=== PATIENT | male | born 1960 | race Caucasian/White ===

== ENCOUNTER → 2021-01-20 | Outpatient (CLI) | payer BC ==
[2021-01-20 11:20] LABS: Basophils % (A) 0 %; Eosinophils # (A) 0.4 k/uL (0-0.7); Eosinophils % (A) 5 %; HCT 37.3 % (39.0-53.0); HGB 12.8 gm/dL (13.0-17.5); Lymphocytes # (A) 1.6 k/uL (1.0-4.8); Lymphocytes % (A) 21 %; MCH 30.7 pg (25.0-35.0); MCHC 34.4 g/dL (31.0-37.0); MCV 89.5 fL (80.0-100.0); Mean Platelet Volume 8.3; Monocytes # (A) 0.7 k/uL (0-1.0); Monocytes % (A) 9 %; Neutrophils # (A) 4.7 k/uL (1.3-7.7); Neutrophils % (A) 63 %; Platelet Count 193 k/uL (150-450); RBC 4.17 m/uL (4.30-5.90); RDW 13.1 % (11.5-15.5); WBC 7.5 k/uL (3.8-10.6)
[2021-01-20 11:26] LABS: Appearance,Urine Clear (Clear); Bilirubin,Urine Negative (Negative); Blood,Urine Negative (Negative); Color,Urine Yellow; Glucose,Urine (UA) Negative (Negative); Ketones,Urine Negative (Negative); Leukocyte Esterase,Urine Negative (Negative); Nitrite,Urine Negative (Negative); PH, Urine 5.5 (5.0-8.0); Protein,Urine Negative (Negative); Specific Gravity,Urine 1.024 (1.001-1.035); Urobilinogen,Urine <2.0 mg/dL (<2.0)
[2021-01-20 11:52] LABS: ALT 31 U/L (4-49); AST 27 U/L (17-59); African American GFR (CKD) >90 (>60 ml/min/1.73 sqM); Albumin 4.2 g/dL (3.5-5.0); Alkaline Phosphatase 55 U/L (38-126); Anion Gap 9 mmol/L; Blood Urea Nitrogen 26 mg/dL (9-20); Carbon Dioxide 28 mmol/L (22-30); Chloride 103 mmol/L (98-107); Glucose 118 mg/dL (74-99); Non-African American GFR(CKD) >90 (>60 ml/min/1.73 sqM); Potassium 4.4 mmol/L (3.5-5.1); Sodium 140 mmol/L (137-145); Total Bilirubin 0.3 mg/dL (0.2-1.3); Total Protein 7.3 g/dL (6.3-8.2)
--- NOTE | 2021-01-20 12:17 | XR ---
EXAMINATION TYPE: XR chest 2V DATE OF EXAM: 01/20/2021 COMPARISON: NONE HISTORY: Presurgical testing. TECHNIQUE: Frontal and lateral views of the chest are obtained. FINDINGS: There is no focal air space opacity, pleural effusion, or pneumothorax seen. The cardiac silhouette size is within normal limits with some atherosclerotic change in the aortic knob. Multilev el lateral spurring in the mid to lower thoracic spine. IMPRESSION: No acute cardiopulmonary process.
== END | disposition home or self-care (01) ==
LOC: LABPAT 10:45
PROVIDERS: ATTEND Urology
DX: Z01.818 Encounter for other preprocedural examination (principal); D41.01 Neoplasm of uncertain behavior of right kidney; N39.0 Urinary tract infection, site not specified
CPT/HCPCS: 36415; 71046; 80053; 81003; 85025; 87086

== ENCOUNTER 2021-01-26 11:33 | Inpatient (IN) | payer BC ==
[2021-01-22 09:57] VITALS: BMI 47.0
--- NOTE | 2021-01-25 11:30 | P.GSHP ---
History of Present Illness H&P Date: 01/25/21 60 yo male had right flank kong. His primary care ordered a ct scan that identified a large right renal mass. He is now asx and his urne has been and is claer. He has no history of trauma or uti. the ct scan with contrast from [place] shows a large anterior mid to lower pole right renal mass c/w a renal cell carcinoma. He comes for a right radical nephrectomy. Alternatives have been discussed. - Constitutional Constitutional: Denies chills, Denies fever - EENT Eyes: denies blurred vision, denies pain Ears, nose, mouth and throat: Denies headache, Denies sore throat - Cardiovascular Cardiovascular: Denies chest pain, Denies shortness of breath - Respiratory Respiratory: Denies cough, Denies 7 - Gastrointestinal Gastrointestinal: Denies abdominal pain, Denies diarrhea, Denies nausea, Denies vomiting - Genitourinary (Female) Genitourinary: Denies dysuria, Denies hematuria - Genitourinary (Male) Genitourinary: Denies dysuria, Denies hematuria - Musculoskeletal Musculoskeletal: Denies myalgias - Integumentary Integumentary: Denies pruritus, Denies rash - Neurological Neurological: Denies numbness, Denies weakness - Psychiatric Psychiatric: Denies anxiety, Denies depression - Endocrine Endocrine: Denies fatigue, Denies weight change Past Medical History Past Medical History: Hyperlipidemia, Hypertension, Myocardial Infarction ([place]) Additional Past Medical History / Comment(s): During colonoscopy they questioned if he had sleep apnea but he's never been diagnosed. Lower extremity discoloration and scarring, skin infections requiring iv abx therapy twice. Last Myocardial Infarction Date:: 1999 History of Any Multi-Drug Resistant Organisms: None Reported Past Surgical History: Heart Catheterization Additional Past Surgical History / Comment(s): Ho. Cataract Removal Past Anesthesia/Blood Transfusion Reactions: No Reported Reaction Past Psychological History: No Psychological Hx Reported Smoking Status: Former smoker Past Alcohol Use History: Occasional Additional Past Alcohol Use History / Comment(s): Quit in 1999 Past Drug Use History: None Reported - Past Family History Mother Family Medical History: Coronary Artery Disease (CAD) Medications and Allergies Home Medications Medication Instructions Recorded Confirmed Type Aspirin 81 mg PO DAILY 01/22/21 01/22/21 History Isosorbide Mononitrate [Isosorbide 30 mg PO DAILY 01/22/21 01/22/21 History Mononitrate ER] Lisinopril-Hctz 20-12.5 mg 1 tab PO DAILY 01/22/21 01/22/21 History [Zestoretic 20-12.5] Metoprolol Tartrate [Lopressor] 25 mg PO BID 01/22/21 01/22/21 History [place]-3 Fatty Acids/Fish Oil [Fish 1 each PO DAILY 01/22/21 01/22/21 History Oil 1,000 mg Softgel] Pravastatin Sodium [Pravachol] 40 mg PO HS 01/22/21 01/22/21 History Allergies Allergy/AdvReac Type Severity Reaction Status Date / Time celecoxib [From Celebrex] Allergy Rapid Verified 01/22/21 09:32 Heart Rate abx-unknown Allergy Rash/Hives Uncoded 01/22/21 09:32 Surgical - Exam - General well developed, well nourished, obese - Eyes PERRL - ENT no hearing loss - Neck no masses - Respiratory normal expansion, normal respiratory effort - Cardiovascular Rhythm: regular - Abdomen Abdomen: soft, non tender - Genitourinary normal penis with no external lesions, testicles present - Integumentary no rash, no growths - Neurologic normal coordination, normal sensation - Musculoskeletal normal gait, normal posture - Psychiatric oriented to time, oriented to person, oriented to place, speech is normal, memory intact Results - Imaging CT scan - abdomen: report reviewed, image reviewed CT scan - pelvis: report reviewed, image reviewed Assessment and Plan Assessment: Impression: right renal mass c/w renal cell ca. Plan: right radical nephrectomy
[~2021-01-26 11:33] MED LIST: DEXAMETHASONE SOD PHOSPHATE 4 MG/ML 1 ML VIAL IV ONE; HYDROmorphone 0.5 MG/0.5 ML SYRINGE IVP PRN; ONDANSETRON 4 MG/2 ML VIAL IVP ONE; ceFAZolin 3 GM in SODIUM CHLORIDE 0.9% 100 ML IVPB PRN
[2021-01-26] MEDS: LACTATED RINGERS 1,000 ML IV SCH ×2 (12:18→16:51)
[2021-01-26] MEDS ORDERED: ONDANSETRON 4 MG/2 ML VIAL ONE (12:25)
[2021-01-26] MEDS ORDERED: MIDAZOLAM 2 MG/2 ML VIAL IVP ONE (12:38)
[2021-01-26] MEDS ORDERED: MIDAZOLAM 2 MG/2 ML VIAL ONE (13:10)
[2021-01-26] MEDS ORDERED: PROPOFOL 10 MG/ML 20 ML VIAL IV ONE (13:10)
[2021-01-26] MEDS ORDERED: fentaNYL (PF) 50 MCG/ML 2 ML AMP ONE (13:10)
[2021-01-26] MEDS ORDERED: SUCCINYLCHOLINE CHLORIDE VIAL 200 MG/10 ML VIAL IV ONE (13:10)
[2021-01-26] MEDS ORDERED: NEOSTIGMINE 1 MG/ML 10 ML VIAL ONE (13:10)
[2021-01-26] MEDS ORDERED: ePHEDrine SULFATE/0.9% NACL/PF 50 MG/5 ML SYRINGE IV ONE (13:10)
[2021-01-26] MEDS ORDERED: GLYCOPYRROLATE 0.2 MG/ML 2 ML VIAL ONE (13:10)
[2021-01-26] MEDS ORDERED: LIDOCAINE 1% INJ 10MG/ML (20 ML MDV) ONE (13:10)
[2021-01-26] MEDS ORDERED: ROCURONIUM 10 MG/ML (5 ML VIAL) IV ONE (13:10)
[2021-01-26] MEDS ORDERED: HYDROmorphone (PF) 1 MG/ML ONE (13:10)
[2021-01-26] MEDS ORDERED: NALOXONE 0.4 MG/ML 1 ML VIAL IV PRN (13:34)
--- NOTE | 2021-01-26 13:41 | P.ANPRN ---
Procedure Note - Anesthesia - Epidural/Spinal Epidural Time Out Performed: Yes Date of Procedure: 01/26/21 Procedure Start Time: 12:37 Procedure Stop Time: 12:49 Location of Patient: PreOp Indication: Acute Post-Operative Pain Sedation Type: Sedate with meaningful contact maintained Preparation: Sterile Dressing Position: Sitting Catheter: Indwelling Needle Guage: 18 Injectate: Test Dose Lidocaine1.5% w/1:200,000 epi (3cc without response) Blood Aspirated: No Pain Paresthesia on Injection Noted: No Events: Uneventful and Well Tolerated
[2021-01-26] MEDS ORDERED: LACTATED RINGERS 1,000 ML IV ONE (14:15)
--- NOTE | 2021-01-26 15:33 | P.OP ---
Date of Procedure: 01/26/21 Preoperative Diagnosis: right renal mass, large Postoperative Diagnosis: same Procedure(s) Performed: right radical nephrectomy Anesthesia: GETA, epidural Surgeon: Pawel Baugh Metal Hardener #1: Edwin Garcia Estimated Blood Loss (ml): 700 Pathology: other (kidney and gerotas fascia and regional lymph nodes) Condition: stable Disposition: PACU Indications for Procedure: the patient is 60. He had right flank pain. A computed tomography scan was obtained identifying a 14 cm mixed echogenic mass in the right anterior kidney. He was referred to me for further evaluation. Upon reviewing the computed tomography scan with radiology when both were convinced that this is probably a renal cell carcinoma. He comes for a right radical nephrectomy at regional lymphadenectomy. The cava and renal vein do not appear to be involved. Description of Procedure: the patient is brought to the operating suite. He is given a general endotracheal anesthesia preceded by an epidural anesthetic for perioperative pain control. Torres catheters introduced sterilely. He is prepped and draped sterilely. A right subcostal incision is made. The oblique and rectus fascias are opened. The peritoneum was opened up. The liver is inspected is normal. The right large anterior renal mass (14 cm) is palpated. I first incised the base of the mesentery the colon reflected medially. I incised the white line of [place] and reflect the kidney medially. I tediously remove the colon over the large anterior renal mass. This is done superiorly and inferiorly. The peritoneum is incised superiorly. I tediously remove the colon and then the d uodenum medially so that I can eventually finding the very engorged gonadal vein, vena cava and then the right renal vein. After adequate retraction with the Bookwalter retractor I dissect down to the vena cava. I move up in its around the gonadal vein on the right side and taken between 2-0 silk ties and hemoclips. I then moved superiorly and identify the right renal vein. I tediously dissect around the right renal vein such that a 2-0 silk can be placed loosely around the vein for control. I then cleaned up around the renal vein superiorly and inferiorly such that I can identify the right single renal artery which is just beneath and slightly inferior to the right renal vein. I dissect around the right renal artery and place a 2-0 silk tie around it and tie it down to stop the inflow blood into the kidney. I then doubly tying ligate the renal vein and transected. I then doubly tie and ligate the renal artery and transected. I move inferiorly dissecting lymph randall tissue off the vena cava and psoas muscle. In June inferiorly and using large hemoclips transect the gonadal vein and ureter inferiorly. I moved posteriorly and elevate the kidney and drug's fascia as well as tumor off the posterior body wall. I moved superiorly above the renal vein insertion and using hemoclips dissect the tumor drug's fascia off the superior vena cava and then I make the incision beneath the adrenal gland and using hemoclips transect the tissue inferior to the adrenal gland. I move laterally and dissect all the tissue off the body wall and then elevate the kidney posteriorly and eventually deliver the kidney drug's fashion tumor from the wound. Packing is placed. The wound is irrigated. I inspect the adrenal bed and met there is minimal bleeding. This is controlled with hemoclips a. I inspect the renal artery and renal vein ties and they are secure. I inspect the gonadal vein time it is secured. There is no active bleeding. The bowel was allowed to fall back into the right upper quadrant. The omentum was placed over the bowel. The abdominal wall was closed in 3 layers of #1 PDS. The skin is stapled the patient is awake and returned recovery in good condition. Blood loss was approximately 700 mL. Impression successful right radical nephrectomy for a 14 cm mixed echo right renal mass. Pending pathology report is of normal recommendations.
[2021-01-26] MEDS: ROPIVACAINE 250 MG, fentaNYL (PF) 1,250 MCG in SODIUM CHLORIDE 0.9% 175 ML EPIDURAL PRN (15:45)
[2021-01-26] MEDS: DEXTROSE 5%-0.45% NACL 1,000 ML IV SCH ×2 (19:13→22:08)
[2021-01-26] MEDS: PRAVASTATIN SODIUM 40 MG TAB PO SCH (22:00)
[2021-01-26] MEDS: METOPROLOL TARTRATE 25 MG TAB PO SCH (22:00)
--- NOTE | 2021-01-27 07:13 | P.PN ---
Progress Note - Text Progress Note Date: 01/27/21 Postoperative day # status post right radical nephrectomy ,epidural catheter placed for postoperative analgesia, patient doing well epidural site okay, patient currently on combination of epidural infusion solution of Ropivacaine 0.0625% and Fentanyle , the infusion rate at 10 ml per hour , patient had no motor deficit epidural site okay , vital signs stable ,VAS 4 /10 , Assessment and plan= post operative day #1 , patient doing well ,pain well controlled , there is no anesthesia related complications
[2021-01-27] MEDS: DEXTROSE 5%-0.45% NACL 1,000 ML IV SCH ×3 (09:47→20:47)
[2021-01-27] MEDS: METOPROLOL TARTRATE 25 MG TAB PO SCH ×2 (09:49→20:47)
[2021-01-27] MEDS: LISINOPRIL-HCTZ 20-12.5 MG 1 EACH TAB PO SCH (09:49)
[2021-01-27] MEDS: ISOSORBIDE MONONITRATE ER 30 MG TAB.ER.24H PO SCH (09:49)
[2021-01-27 13:00] LABS: African American GFR (CKD) 81 (>60 ml/min/1.73 sqM); Anion Gap 11 mmol/L; Blood Urea Nitrogen 28 mg/dL (9-20); Calcium 8.7 mg/dL (8.4-10.2); Carbon Dioxide 19 mmol/L (22-30); Chloride 103 mmol/L (98-107); Glucose 120 mg/dL (74-99); Non-African American GFR(CKD) 70 (>60 ml/min/1.73 sqM); Sodium 133 mmol/L (137-145)
[2021-01-27 13:15] LABS: Potassium 5.5 mmol/L (3.5-5.1)
[2021-01-27] MEDS: ROPIVACAINE 250 MG, fentaNYL (PF) 1,250 MCG in SODIUM CHLORIDE 0.9% 175 ML EPIDURAL PRN (13:19)
[2021-01-27] MEDS: LACTATED RINGERS 1,000 ML IV SCH (16:23)
--- NOTE | 2021-01-27 16:23 | P.PN ---
Progress Note - Text Progress Note Date: 01/27/21 S/P right radical nephrectomy No acute overnight event, pain is controlled. Has not started diet yet. VSS -Will start CLD -Ambulate, will d/c patel after ambulation
[2021-01-27] MEDS: PRAVASTATIN SODIUM 40 MG TAB PO SCH (20:47)
[2021-01-28] MEDS: DEXTROSE 5%-0.45% NACL 1,000 ML IV SCH ×3 (05:44→20:22)
[2021-01-28] MEDS: ROPIVACAINE 250 MG, fentaNYL (PF) 1,250 MCG in SODIUM CHLORIDE 0.9% 175 ML EPIDURAL PRN ×2 (08:20→22:13)
[2021-01-28] MEDS: LISINOPRIL-HCTZ 20-12.5 MG 1 EACH TAB PO SCH (08:36)
[2021-01-28] MEDS: METOPROLOL TARTRATE 25 MG TAB PO SCH ×2 (08:37→20:21)
[2021-01-28] MEDS: ISOSORBIDE MONONITRATE ER 30 MG TAB.ER.24H PO SCH (08:39)
[2021-01-28] MEDS: LACTATED RINGERS 1,000 ML IV SCH (16:50)
--- NOTE | 2021-01-28 17:29 | P.PN ---
Progress Note - Text Progress Note Date: 01/28/21 Postoperative day #2 status post right radical nephrectomy, no acute overnight events, pain is controlled. Tolerating clear liquid diet, denies any nausea/vomiting Abdomen soft nontender nondistended Incision covering and dressing, clean dry and intact A/P Status post right open radical nephrectomy -We'll advance a regular diet -We'll plan on removing Torres once the epidural is discontinued
--- NOTE | 2021-01-28 20:19 | P.PN ---
Progress Note - Text Progress Note Date: 01/28/21 Postoperative day # 2 status post right radical nephrectomy ,epidural catheter placed for postoperative analgesia, patient doing well epidural site okay, patient currently on combination of epidural infusion solution of Ropivacaine 0.0625% and Fentanyle , the infusion rate at 11 ml per hour , patient had no motor / sensory deficit.Eepidural site dressing intact, no tenderness. Over the epidural site. Patient is sitting comfortably in chair next to the bed. vital signs stable ,VAS 2-3 /10 , Assessment and plan= post operative day #2 , patient doing well ,pain well controlled , there is no anesthesia related complications. continue epidural one more day if primary team of approved.
[2021-01-28] MEDS: PRAVASTATIN SODIUM 40 MG TAB PO SCH (20:21)
[2021-01-29] MEDS: LISINOPRIL-HCTZ 20-12.5 MG 1 EACH TAB PO SCH (09:20)
[2021-01-29] MEDS: METOPROLOL TARTRATE 25 MG TAB PO SCH (09:20)
[2021-01-29] MEDS: ISOSORBIDE MONONITRATE ER 30 MG TAB.ER.24H PO SCH (09:20)
--- NOTE | 2021-01-29 10:13 | P.PN ---
Progress Note - Text Progress Note Date: 01/29/21 Postoperative day # 3 status post right radical nephrectomy ,epidural catheter placed for postoperative analgesia, patient doing well epidural site okay, patient currently on combination of epidural infusion solution of Ropivacaine 0.0625% and Fentanyle , the infusion rate at 11 ml per hour , patient had no motor / sensory deficit. Eepidural site dressing intact, no tenderness. Over the epidural site. Patient is sitting comfortably in chair next to the bed. vital signs stable ,VAS 2-3 /10. Assessment and plan= post operative day #3 , patient doing well ,pain well controlled, there is no anesthesia related complications. epidural catheter removed intact, the catheter tip intact witnessed by RN. Epidural catheter skin site was cleaned and sterile dressing applied.
[2021-01-29] MEDS: HYDROcodone/APAP 5-325MG 1 EACH TAB PO PRN ×2 (13:39→17:55)
[2021-01-29 13:44] VITALS: BP 139/73; PULSE 82; RESP 17; TEMP 98.8
--- NOTE | 2021-01-29 15:27 | P.DS ---
Providers Date of admission: 01/26/21 11:33 Attending physician: Pawel Baugh Primary care physician: Getachew Gonzalez MD Hospital Course: 60-year-old male with history of right-sided renal mass, he underwent a right open radical nephrectomy by Dr. Baugh on January 26. Please see op note dated January 26 for full surgery detail. He was admitted to the floor postoperatively. He was started on clear liquid diet on postop day #1, and advanced regular diet on postop day #2. His epidural was discontinued on postoperative day #3, his Torres was removed on postop day #3. He was doing well off of the epidural, and was discharged home on postoperative #3. At time of discharge was tolerating a diet, ambulating, pain was well-controlled Plan - Discharge Summary Discharge Rx Participant: Yes New Discharge Prescriptions: New methocarbamoL [Robaxin] 750 mg PO QID 7 Days #28 tab HYDROcodone/APAP 5-325MG [[place] 5-325] 1 tab PO Q4HR PRN 3 Days #18 tab PRN Reason: Pain No Action Pravastatin Sodium [Pravachol] 40 mg PO HS Metoprolol Tartrate [Lopressor] 25 mg PO BID Lisinopril-Hctz 20-12.5 mg [Zestoretic 20-12.5] 1 tab PO DAILY Isosorbide Mononitrate [Isosorbide Mononitrate ER] 30 mg PO DAILY RX: Aspirin 81 mg PO DAILY [place]-3 Fatty Acids/Fish Oil [Fish Oil 1,000 mg Softgel] 1 each PO DAILY Discharge Medication List Isosorbide Mononitrate [Isosorbide Mononitrate ER] 30 mg PO DAILY 01/22/21 [History] Lisinopril-Hctz 20-12.5 mg [Zestoretic 20-12.5] 1 tab PO DAILY 01/22/21 [History] Metoprolol Tartrate [Lopressor] 25 mg PO BID 01/22/21 [History] [place]-3 Fatty Acids/Fish Oil [Fish Oil 1,000 mg Softgel] 1 each PO DAILY 01/22/21 [History] Pravastatin Sodium [Pravachol] 40 mg PO HS 01/22/21 [History] RX: Aspirin 81 mg PO DAILY 01/22/21 [History] HYDROcodone/APAP 5-325MG [[place] 5-325] 1 tab PO Q4HR PRN 3 Days #18 tab 01/29/21 [Rx] methocarbamoL [Robaxin] 750 mg PO QID 7 Days #28 tab 01/29/21 [Rx] Follow up Appointment(s)/Referral(s): [facility] [[facility]] - ([facility] will call you to schedule your first visit. ) Activity/Diet/Wound Care/Special Instructions: No heavy lifting or straining for 6 weeks You may shower, but no baths
[2021-01-29] MEDS: LACTATED RINGERS 1,000 ML IV SCH (15:35)
== END 2021-01-29 18:15 | disposition home or self-care (01) | DRG 657 ==
LOC: 2ORMAIN 11:33 → 4SSUR 15:55
PROVIDERS: ADMIT Urology; ATTEND Urology
PROC: 0TT00ZZ Resection of Right Kidney, Open Approach (ICD-10-PCS; principal; 2021-01-26 12:30)
DX: C64.1 Malignant neoplasm of right kidney, except renal pelvis (principal); Z68.42 Body mass index [BMI] 45.0-49.9, adult; I25.2 Old myocardial infarction; I10 Essential (primary) hypertension; E78.5 Hyperlipidemia, unspecified; Z87.891 Personal history of nicotine dependence; E66.01 Morbid (severe) obesity due to excess calories; Z79.82 Long term (current) use of aspirin; Z79.899 Other long term (current) drug therapy; Z82.49 Family history of ischemic heart disease and other diseases of the circulatory system
CPT/HCPCS: 80048; 86850; 86900; 86901; 87635; 88305; 88307; 94760